=== PATIENT | male | born 1965 | race Hispanic/Latino ===

== ENCOUNTER 2019-04-23 13:38 | Emergency (ER) | payer SELFPAY ==
[2019-04-23 13:52] LABS: Base Excess-Venous -16.8 mmol/L (-2.0 to 3.0); CO2 Tension (PvCO2) 32.2 mmHg (40.0-50.0); Calcium, Ionized 1.07 mmol/L (See Comments:); Chloride 101 mmol/L (98-107); Glucose 452 mg/dL (70-105); Hemoglobin - Calc 16.5 g/dL (14.0-18.0); Lactate 8.29 mmol/L (0.50-2.20); Potassium 4.5 mmol/L (3.5-5.1); Sodium 129 mmol/L (138-145); vO2 Saturation-calc 49.4 % (60.0-85.0)
== END 2019-04-23 13:56 | disposition expired ==
LOC: ERS 13:38
DX: I46.9 Cardiac arrest, cause unspecified (principal); E11.9 Type 2 diabetes mellitus without complications
CPT/HCPCS: 31500; 82330; 82803; 83605; 92950; 94760; 96374; 96375